=== PATIENT | female | born 1950 | race Caucasian/White ===

== ENCOUNTER → 2024-05-31 18:49 | Outpatient (REF) | payer MEDICARE, OTHER, SELFPAY | LOC: MRI 18:49 | PROVIDERS: ATTENDING PHYSICIAN Internal Medicine; FAMILY PHYSICIAN Internal Medicine | DX: H47.091 Other disorders of optic nerve, not elsewhere classified, right eye (principal) | CPT/HCPCS: 70543; 70553; A9575 ==

== ENCOUNTER → 2025-01-10 14:16 | Outpatient (REF) | payer MEDICARE, OTHER, SELFPAY | LOC: HWRAD 14:16 | PROVIDERS: ATTENDING PHYSICIAN Physician Assistant; FAMILY PHYSICIAN Internal Medicine | DX: M81.0 Age-related osteoporosis without current pathological fracture (principal) | CPT/HCPCS: 77080 ==

== ENCOUNTER → 2025-03-09 14:14 | Outpatient (REF) | payer MEDICARE, OTHER, SELFPAY | LOC: HWRAD 14:14 | PROVIDERS: ATTENDING PHYSICIAN Internal Medicine | DX: R52 Pain, unspecified (principal); S23.41XA Sprain of ribs, initial encounter | CPT/HCPCS: 71250 ==